=== PATIENT | female | born 1995 | race Caucasian/White ===

== ENCOUNTER 2021-01-15 09:01 | Emergency (ER) | payer BC, SELFPAY ==
[2021-01-15 09:10] VITALS: BP 125/72; PULSE 81; RESP 20; TEMP 36.6; O2SAT 98; BMI 34.4
--- NOTE | 2021-01-15 09:38 | HMH.EDUTC ---
[facility] [place] Clinical Impression: Herpes gingivostomatitis Disposition: Home, Self-Care Condition on Discharge: Good Instructions: DI for Aphthous Ulcers (Canker Sores), Canker Sores (Alternative Therapy) Additional Instructions: You can make magic mouthwash, there is instructions online that tell you how to make it *Follow up with your Family Doctor or Dentist if no improvement or any worsening of symptoms Return if needed Straight to ER if any life threatening symptoms Yogurt may help to soothe your mouth Avoid spicy foods Referrals: Penny Perez [Primary Care Provider] - As needed Forms: Work/School Release Time of Disposition: 09:49 Medical Decision Making - Luis Alberto Inquiry Pt receiving controlled substance: No Luis Alberto was queried for this patient: No Vital Signs: 01/15/21 09:10 Temperature 97.9 F Temperature Source Oral Pulse Rate [Right Brachial] 81 Respiratory Rate 20 Blood Pressure [Right Arm] 125/72 Blood Pressure Mean [Right Arm] 89 Blood Pressure Source [Right Arm] Automatic Cuff Blood Pressure Position [Right Arm] Sitting 02 Sat by Pulse Oximetry 98 Oxygen Delivery Method Room Air [facility] [place] - General Stated complaint: Sores on mouth and lips Time Seen by Provider: 01/15/21 09:38 Mode of Arrival: Ambulatory Source of Information: Patient Limitations: No Limitations Description of Symptoms (Recalled from Triage Doc. by RN): PATIENT C/O SORE ON LIP AND TONGUE WITH SWOLLEN GUMS SINCE SUNDAY. C/O PAIN IN NECK AND JAW WITH SWALLOWING. SHE STATES SHE SAW HER DENTIST YESTERDAY WHO STARTED HER ON ACYCLOVIR HEENT Symptoms (Recalled from RN notes): Yes Resp Symptoms (Recalled from RN notes): No Skin Symptoms (Recalled from RN notes): No MS Symptoms (Recalled from RN notes): No Functional Status (Recalled from RN notes): WNL - History of Present Illness Provider Complaint: Patient states that she was seen by her Dentist and was dx Herpes Gingivoostomatitis and was started on Acyclovir States that she came in today to see if she could get some magic mouthwash to help with the pain and get a work note because it hurts when she talks or moves her lips - Related Data Home Medications Medication Instructions Recorded Confirmed Buspirone HCl [Buspar 10mg 10 mg PO BID 01/15/21 01/15/21 tablet] Losartan Potassium [Cozaar 100mg 100 mg PO DAILY 01/15/21 01/15/21 Tablets] NIFEdipine [Nifedipine ER] 60 mg PO DAILY 01/15/21 01/15/21 Norethindrone 0.35 mg PO DAILY 01/15/21 01/15/21 Trazodone HCl [Desyrel 50mg tablet] 50 mg PO DAILY 01/15/21 01/15/21 carvediloL [Coreg 12.5mg 12.5 mg PO BID 01/15/21 01/15/21 Tablet] Allergies Allergy/AdvReac Type Severity Reaction Status Date / Time sulfamethoxazole Allergy Verified 01/15/21 09:30 [From Bactrim] trimethoprim [From Bactrim] Allergy Verified 01/15/21 09:30 - Worker's Comp Is this a Worker's Comp case?: No [facility] History - Hepatitis A Screen Drug use history?: No High risk sexual behaviors?: No History of sexually transmitted infection?: No Currently employed?: No Childcare worker?: No Do you have indoor plumbing?: Yes Do you have electricity?: Yes Attestation statement:: This patient has been screened for Hepatitis A risk factors. I have reviewed the patient's past medical history: Yes Laterality Cases: Bilateral: Tonsillectomy - Social History Alcohol Intake: never Occupational Status: other ROS Obtained: Yes All systems reviewed & no additional complaints, Yes Systems reviewed as appropriate & no additional complaints - ENT Comments: herpes gingivostomatitis, blister like lesions on lips and mouth and tongue Physical Exam - General General appearance: alert, in no apparent distress - Expanded ENT Exam Mouth exam: Present: other (small ulcer/blister like lesions on her lips, tongue, gums and roof of mouth like that commonly seen with herpes gingivostomatitis) - Respiratory Respiratory exam
[2021-01-15 09:51] VITALS: BP 125/72; PULSE 81; RESP 20; TEMP 36.6; O2SAT 98
== END 2021-01-15 09:53 | disposition home or self-care (01) ==
PROVIDERS: Emergency Provider Nurse Practitioner; PCP Physician Assistant
DX: B00.2 Herpesviral gingivostomatitis and pharyngotonsillitis (principal); I10 Essential (primary) hypertension; Z88.2 Allergy status to sulfonamides; Z79.899 Other long term (current) drug therapy
CPT/HCPCS: 99202; G0463

== ENCOUNTER 2022-12-25 09:38 | Emergency (ER) | payer BC, SELFPAY ==
[2022-12-25 10:15] VITALS: BP 0/0; PULSE 0; RESP 0; TEMP -17.7; TEMP 0
== END 2022-12-25 10:16 | disposition left against medical advice (07) ==
LOC: UTC 09:41
PROVIDERS: Emergency Provider Nurse Practitioner; PCP Nurse Practitioner Family
DX: Z53.21 Procedure and treatment not carried out due to patient leaving prior to being seen by health care provider (principal)